=== PATIENT | female | born 1970 | race American Indian/Alaskan Native ===

== ENCOUNTER 2019-03-31 22:59 | Observation (INO) | payer OTHER ==
[2019-03-31] MEDS ORDERED: ASPIRIN PO ONE (23:46)
[2019-04-01 00:24] LABS: Basophils % (Auto) 0.3 % (0.0-1.8); Eosinophils # (Auto) 0.3 K/mm3 (0.0-0.4); Eosinophils % (Auto) 3.6 % (0.0-4.3); Hematocrit 39.6 % (30.3-42.9); Hemoglobin 13.9 gm/dl (10.1-14.3); Lymphocytes # (Auto) 1.8 K/mm3 (1.2-5.4); Lymphocytes % (Auto) 25.9 % (13.4-35.0); Mean Corpuscular HGB Conc 35 % (30-34); Mean Corpuscular Volume 87 fl (79-97); Monocytes # (Auto) 0.4 K/mm3 (0.0-0.8); Monocytes % (Auto) 5.9 % (0.0-7.3); Platelet Count 235 K/mm3 (140-440); Red Blood Count 4.56 M/mm3 (3.65-5.03); Red Cell Distribution Width 14.4 % (13.2-15.2)
--- NOTE | 2019-04-01 00:35 | XRay Report ---
PROCEDURE: XR CHEST 1V AP TECHNIQUE: Chest radiograph single view. HISTORY: Chest Pain COMPARISONS: None . FINDINGS: Heart: Normal. Mediastinum/Vessels: Normal. Lungs/Pleural space: Normal. Bony thorax: No acute osseous abnormality. Life support devices: None. IMPRESSION: No acute cardiopulmonary abnormality. This document is electronically signed by Jamar Muhammad MD., April 01 2019 12:33:52 AM ET
--- NOTE | 2019-04-01 01:20 | Emergency Department Report ---
ED Chest Pain HPI - General Chief Complaint: Chest Pain Stated Complaint: REYNAGA/L ANKLE PAIN/CP Time Seen by Provider: 04/01/19 01:20 Source: patient Mode of arrival: Ambulatory Limitations: No Limitations - History of Present Illness Initial Comments: Patient is a 48-year-old female that presents emergency room with complaints of chest pain. Patient states chest pain is nonradiating. Patient states chest pain is a 4 out of 10 and is in the left chest. Patient states chest pain started approximately 4 hours ago. Patient states the pain is better with rest and worse with exertion. Patient states she has been noncompliant with her blood pressure medication due to running out of her meds. Patient states any time she runs out of her medications her left ankle swells. Patient states her ankle pain is a 2 out of 10 and is a pressure and nonradiating. Patient states her headache is secondary to her blood pressure being high. Patient states she takes hydrochlorothiazide 12.5 mg. MD Complaint: chest pain -: Sudden Onset: during rest Pain Location: substernal, left chest Pain Radiation: none Severity: moderate Severity scale (0 -10): 4 Quality: heaviness, pressure Consistency: constant Improves With: rest Worsens With: exertion re: denies: nausea, vomting, diaphoresis, dyspnea, sense of impending doom Other Symptoms: leg swelling. denies: cough, fever, syncope, rash, acid taste in mouth, palpitations, burping Treatments Prior to Arrival: none Aspirin use within the Past 7 Days: (0) No - Related Data On Oral Contraceptives: No Allergies Allergy/AdvReac Type Severity Reaction Status Date / Time No Known Allergies Allergy Verified 04/01/19 01:48 Heart Score - HEART Score History: Slightly suspicious EKG: Normal Age: 45-65 Risk factors: No known risk factors Troponin: < normal limit HEART Score: 1 ED Review of Systems ROS: Stated complaint: REYNAGA/L ANKLE PAIN/CP Other details as noted in HPI Constitutional: denies: chills, fever Eyes: denies: eye pain, eye discharge, vision change ENT: denies: ear pain, throat pain Respiratory: denies: cough, shortness of breath, wheezing Cardiovascular: denies: chest pain, palpitations Endocrine: no symptoms reported Gastrointestinal: denies: abdominal pain, nausea, diarrhea Genitourinary: denies: urgency, dysuria, discharge Musculoskeletal: denies: back pain, joint swelling, arthralgia Skin: denies: rash, lesions Neurological: denies: headache, weakness, paresthesias Psychiatric: denies: anxiety, depression Hematological/Lymphatic: denies: easy bleeding, easy bruising ED Past Medical Hx - Past Medical History Previous Medical History?: Yes Hx Hypertension: Yes Additional medical history: Morbid Obesity, - Surgical History Past Surgical History?: Yes Additional Surgical History: Left Ankle Fusion, Hysterectomy - Family History Family history: no significant - Social History Smoking Status: Never Smoker Substance Use Type: None ED Physical Exam - General Limitations: No Limitations General appearance: alert, in no apparent distress - Head Head exam: Present: atraumatic, normocephalic - Eye Eye exam: Present: normal appearance, PERRL Pupils: Present: normal accommodation - ENT ENT exam: Present: mucous membranes moist - Neck Neck exam: Present: normal inspection - Respiratory Respiratory exam: Present: normal lung sounds bilaterally. Absent: respiratory distress, wheezes, rales, chest wall tenderness - Cardiovascular Cardiovascular Exam: Present: regular rate, normal rhythm. Absent: systolic murmur, diastolic murmur, rubs, gallop - GI/Abdominal GI/Abdominal exam: Present: soft, normal bowel sounds. Absent: distended, tenderness - Extremities Exam Extremities exam: Present: normal inspection, full ROM, normal capillary refill, pedal edema. Absent: tenderness, calf tenderness - Back Exam Back exam: Present: normal inspection - Neurological Exam Neurological exam: Present: alert, oriented X3 - Psychiatric Psychiatric exam: Present: normal affect, normal mood - Skin Skin exam: Present: warm, dry, intact, normal color. Absent: rash ED Course Vital Signs 03/31/19 03/31/19 04/01/19 23:20 23:38 01:24 Temperature 98.7 F 98.7 F Pulse Rate 79 79 70 Respiratory 18 20 18 Rate Blood Pressure 151/119 151/119 Blood Pressure 147/113 [Right] O2 Sat by Pulse 95 98 97 Oximetry - Reevaluation(s) Reevaluation #1: Discussed all results with patient. Patient will be admitted to the hospitalist service. Patient agrees to plan of care. 04/01/19 02:15 - Consultations Consultation #1: Hospitalist consulted for admission. Hospitalist to admit patient. Hospitalist to assume care patient. 04/01/19 02:29 GERMAN score - German Score Age > 65: (0) No Aspirin use within the Past 7 Days: (0) No 3 or more CAD Risk Factors: (0) No 2 or more Angina events in past 24 hrs: (0) No Known CAD with more than 50% Stenosis: (0) No Elevated Cardiac Markers: (0) No ST Deviation Greater than 0.5mm: (0) No GERMAN Score: 0 ED Medical Decision Making - Lab Data Result diagrams: 03/31/19 23:58 03/31/19 23:58 - EKG Data -: EKG Interpreted by Or EKG shows normal: sinus rhythm, axis, intervals, QRS complexes, ST-T waves Rate: normal - Radiology Data Radiology results: report reviewed, image reviewed PROCEDURE: XR CHEST 1V AP TECHNIQUE: Chest radiograph single view. HISTORY: Chest Pain COMPARISONS: None . FINDINGS: Heart: Normal. Mediastinum/Vessels: Normal. Lungs/Pleural space: Normal. Bony thorax: No acute osseous abnormality. Life support devices: None. IMPRESSION: No acute cardiopulmonary abnormality. - Medical Decision Making Patient is a 48-year-old female that presents emergency room for lower extremity edema and headache and chest pain. Patient is also noncompliant with her blood pressure medications. He has elevated blood pressure. Patient was admitted to the hospitalist service - Differential Diagnosis chest pain. ACS. Noncompliance. Elevated blood pressure. Critical Care Time: Yes Critical care attestation.: If time is entered above; I have spent that time in minutes in the direct care of this critically ill patient, excluding procedure time. Critical Care Time: 35 minutes ED Disposition Clinical Impression: Noncompliance Chest pain Qualifiers: Chest pain type: unspecified Qualified Code(s): R07.9 - Chest pain, unspecified Hypertension Qualifiers: Hypertension type: essential hypertension Qualified Code(s): I10 - Essential (primary) hypertension Disposition: OP ADMIT IP TO THIS HOSP Is pt being admited?: Yes Does the pt Need Aspirin: No Condition: Critical Referrals: DYLON AZAR MD [Primary Care Provider] - 3-5 Days Time of Disposition: 02:24
[2019-04-01 02:19] LABS: BUN/Creatinine Ratio 17; Blood Urea Nitrogen 10 mg/dL (7-17); Calcium 8.9 mg/dL (8.4-10.2); Hemolysis Index 21
[2019-04-01] MEDS ORDERED: MORPHINE IV PRN (03:21)
[2019-04-01] MEDS ORDERED: TYLENOL PO PRN (03:21)
[2019-04-01] MEDS ORDERED: SODIUM CHLORIDE FLUSH SYRINGE 10 ML IV PRN (03:21)
[2019-04-01] MEDS ORDERED: ZOFRAN IV PRN (03:21)
[2019-04-01] MEDS ORDERED: DILAUDID IV PRN (03:22)
[2019-04-01] MEDS ORDERED: K-DUR PO ONE ×2 (03:24→03:36)
[2019-04-01] MEDS ORDERED: APRESOLINE IV PRN (03:24)
[2019-04-01] MEDS ORDERED: NITROSTAT SL PRN (03:25)
[2019-04-01] MEDS ORDERED: NORVASC PO ONE (03:42)
[2019-04-01] MEDS ORDERED: LASIX IV ONE (03:42)
--- NOTE | 2019-04-01 03:56 | History and Physical Report ---
<MARKY HODGES - Last Filed: 04/01/19 03:48> History of Present Illness Date of examination: 04/01/19 Date of admission: 04/01/2019 Chief complaint: Chest pain History of present illness: 48-year-old female with history of hypertension presents to [facility] ED with complaints of left sided chest pain and mild headache. Patient states that she ran out of her blood pressure medicine approximately 2 days ago. Around 8 PM last night while she was sitting down watching TV she started experiencing left-sided chest pain. The pain is nonradiating and sharp. She rates her pain 4/10. She also complains of mild headache which she attributes to elevated blood pressure. Her headache is generalized and she rates her pain 2/10. Patient states that she knows her blood pressure is elevated because her left ankle is swollen and this only happens when her blood pressure is high. Denies nausea, vomiting, diarrhea, diaphoresis, hemoptysis, fever, chills, recent sick contact Past History Past Medical History: hypertension, other (morbid obesity) Past Surgical History: hysterectomy, Other ( Left Ankle Fusion) Social history: Lives alone Family history: no significant family history Medications and Allergies Allergies Allergy/AdvReac Type Severity Reaction Status Date / Time No Known Allergies Allergy Verified 04/01/19 01:48 Active Meds: Active Medications Acetaminophen (Tylenol) 650 mg PO Q4H PRN PRN Reason: Pain MILD(1-3)/Fever >100.5/REYNAGA Aspirin (Baby Aspirin) 81 mg PO QDAY [facility] Atorvastatin Calcium (Lipitor) 40 mg PO QHS [facility] Heparin Sodium (Porcine) (Heparin) 5,000 unit SUB-Q Q12HR [facility] Hydralazine HCl (Apresoline) 10 mg IV Q4HR PRN PRN Reason: Blood Pressure Hydromorphone HCl (Dilaudid) 0.5 mg IV Q3H PRN PRN Reason: Pain , Severe (7-10) Stop: 04/01/19 23:59 Sodium Chloride (Nacl 0.9% 1000 Ml) 1,000 mls @ 75 mls/hr IV DIRECT MARYCHUY Stop: 04/01/19 12:00 Morphine Sulfate (Morphine) 2 mg IV Q4H PRN PRN Reason: Pain, Moderate (4-6) Stop: 04/01/19 23:59 Nitroglycerin (Nitrostat) 0.4 mg SL Q5M PRN PRN Reason: Chest Pain Ondansetron HCl (Zofran) 4 mg IV Q8H PRN PRN Reason: Nausea And Vomiting Sodium Chloride (Sodium Chloride Flush Syringe 10 Ml) 10 ml IV BID [facility]ARYCHUY Sodium Chloride (Sodium Chloride Flush Syringe 10 Ml) 10 ml IV PRN PRN PRN Reason: LINE FLUSH Review of Systems All systems: negative (reviewed and no additional remarkable complaints except as noted above) Cardiovascular: chest pain Musculoskeletal: other (left ankle edema) Neurological: headaches (mild headache) Exam - Physical Exam Narrative exam: Physical exam General appearance: Present: No acute distress, alert and oriented 3, middle- aged adult female - EENT Eyes: Present: PERRL, EOM intact ENT: hearing intact, poor dentition - Neck Neck: Present: supple, normal ROM - Respiratory Respiratory effort: Non-labored Respiratory: bilateral: Clear throughout - Cardiovascular Heart rate: 70 (bpm) Rhythm: Sinus rhythm Heart Sounds: Present: S1 & S2. Absent: rub, click - Extremities Extremities: no ischemia, pulses intact, abnormal (bilateral lower extremity pitting edema L>R) - Peripheral Assessment Peripheral Pulses: within normal limits - Abdominal General gastrointestinal: soft, non-tender, normal bowel sounds - Integumentary Integumentary: Present: warm, dry - Musculoskeletal Musculoskeletal: Able to move all extremities - Neurological Neurological: CNII-XII intact - Psychiatric Psychiatric: Appropriate for situation, cooperative - Constitutional Vitals: Temp Pulse Resp BP Pulse Ox 98.7 F 68 18 132/94 97 03/31/19 23:38 04/01/19 03:28 04/01/19 03:28 04/01/19 03:28 04/01/19 03:28 Results - Labs CBC & Chem 7: 03/31/19 23:58 03/31/19 23:58 Labs: Laboratory Last Values WBC 7.1 K/mm3 (4.5-11.0) 03/31/19 23:58 RBC 4.56 M/mm3 (3.65-5.03) 03/31/19 23:58 Hgb 13.9 gm/dl (10.1-14.3) 03/31/19 23:58 Hct 39.6 % (30.3-42.9) 03/31/19 23:58 MCV 87 fl (79-97) 03/31/19 23:58 MCH 30 pg (28-32) 03/31/19 23:58 MCHC 35 % (30-34) H 03/31/19 23:58 RDW 14.4 % (13.2-15.2) 03/31/19 23:58 Plt Count 235 K/mm3 (140-440) 03/31/19 23:58 Lymph % (Auto) 25.9 % (13.4-35.0) 03/31/19 23:58 [place] % (Auto) 5.9 % (0.0-7.3) 03/31/19 23:58 Eos % (Auto) 3.6 % (0.0-4.3) 03/31/19 23:58 Baso % (Auto) 0.3 % (0.0-1.8) 03/31/19 23:58 Lymph # 1.8 K/mm3 (1.2-5.4) 03/31/19 23:58 [place] # 0.4 K/mm3 (0.0-0.8) 03/31/19 23:58 Eos # 0.3 K/mm3 (0.0-0.4) 03/31/19 23:58 Baso # 0.0 K/mm3 (0.0-0.1) 03/31/19 23:58 Seg Neutrophils % 64.3 % (40.0-70.0) 03/31/19 23:58 Seg Neutrophils # 4.5 K/mm3 (1.8-7.7) 03/31/19 23:58 Sodium 138 mmol/L (137-145) 03/31/19 23:58 Potassium 3.4 mmol/L (3.6-5.0) L 03/31/19 23:58 Chloride 102.4 mmol/L (98-107) 03/31/19 23:58 Carbon Dioxide 20 mmol/L (22-30) L 03/31/19 23:58 19 mmol/L 03/31/19 23:58 BUN 10 mg/dL (7-17) 03/31/19 23:58 0.6 mg/dL (0.7-1.2) L 03/31/19 23:58 Estimated GFR > 60 ml/min 06/06/19 23:58 17 % 03/31/19 23:58 Glucose 89 mg/dL (65-100) 03/31/19 23:58 Calcium 8.9 mg/dL (8.4-10.2) 03/31/19 23:58 < 0.010 ng/mL (0.00-0.029) 04/01/19 02:37 - Imaging and Cardiology EKG: image reviewed (sinus rhythm 70 bpm) Chest x-ray: report reviewed (no acute cardiopulmonary abnormalities), image reviewed Assessment and Plan Assessment and plan: 48-year-old female with history of hypertension noncompliant with antihypertensive medication who presented to [facility] ED with complaints of left sided nonradiating chest pain and mild headache. Troponin negative 2. EKG unavailable for acute ischemic abnormalities. She was profoundly hypotensive with blood pressure 151/119. Will admit as OBS to Telemetry unit for further evaluation. Acute chest pain R/O ACS HTN Hypokalemia Plan: Continue Supportive Care Continuous telemetry monitoring Pain management NPO Monitor BP Start Norvasc 5 mg daily IV Lasix 20mg x1 dose ASA 81mg, Lipitor 40mg daily Monitor BMP Monitor electrolytes and replete as needed IVF NS @100ml/hr Stress Test (treadmill) pending DVT PPX on Heparin and SCD's This patient was seen in conjunction with Dr. Castellanos. Advance Directives: No VTE prophylaxis?: Chemical Plan of care discussed with patient/family: Yes <MERE CASTELLANOS - Last Filed: 04/01/19 05:08> History of Present Illness Date of admission: 04/01/19 03:21 Medications and Allergies Active Meds: Active Medications Acetaminophen (Tylenol) 650 mg PO Q4H PRN PRN Reason: Pain MILD(1-3)/Fever >100.5/REYNAGA Aspirin (Baby Aspirin) 81 mg PO QDAY [facility] Atorvastatin Calcium (Lipitor) 40 mg PO QHS [facility] Heparin Sodium (Porcine) (Heparin) 5,000 unit SUB-Q Q12HR [facility] Hydralazine HCl (Apresoline) 10 mg IV Q4HR PRN PRN Reason: Blood Pressure Hydromorphone HCl (Dilaudid) 0.5 mg IV Q3H PRN PRN Reason: Pain , Severe (7-10) Stop: 04/01/19 23:59 Sodium Chloride (Nacl 0.9% 1000 Ml) 1,000 mls @ 75 mls/hr IV DIRECT MARYCHUY Stop: 04/01/19 12:00 Morphine Sulfate (Morphine) 2 mg IV Q4H PRN PRN Reason: Pain, Moderate (4-6) Stop: 04/01/19 23:59 Nitroglycerin (Nitrostat) 0.4 mg SL Q5M PRN PRN Reason: Chest Pain Ondansetron HCl (Zofran) 4 mg IV Q8H PRN PRN Reason: Nausea And Vomiting Sodium Chloride (Sodium Chloride Flush Syringe 10 Ml) 10 ml IV BID [facility] Sodium Chloride (Sodium Chloride Flush Syringe 10 Ml) 10 ml IV PRN PRN PRN Reason: LINE FLUSH Exam - Constitutional Vitals: Temp Pulse Resp BP Pulse Ox 98.7 F 68 18 132/94 97 03/31/19 23:38 04/01/19 03:28 04/01/19 03:28 04/01/19 03:28 04/01/19 03:28 Results - Labs CBC & Chem 7: 03/31/19 23:58 03/31/19 23:58 Labs: Laboratory Last Values WBC 7.1 K/mm3 (4.5-11.0) 03/31/19 23:58 RBC 4.56 M/mm3 (3.65-5.03) 03/31/19 23:58 Hgb 13.9 gm/dl (10.1-14.3) 03/31/19 23:58 Hct 39.6 % (30.3-42.9) 03/31/19 23:58 MCV 87 fl (79-97) 03/31/19 23:58 MCH 30 pg (28-32) 03/31/19 23:58 MCHC 35 % (30-34) H 03/31/19 23:58 RDW 14.4 % (13.2-15.2) 03/31/19 23:58 Plt Count 235 K/mm3 (140-440) 03/31/19 23:58 Lymph % (Auto) 25.9 % (13.4-35.0) 03/31/19 23:58 [place] % (Auto) 5.9 % (0.0-7.3) 03/31/19 23:58 Eos % (Auto) 3.6 % (0.0-4.3) 03/31/19 23:58 Baso % (Auto) 0.3 % (0.0-1.8) 03/31/19 23:58 Lymph # 1.8 K/mm3 (1.2-5.4) 03/31/19 23:58 [place] # 0.4 K/mm3 (0.0-0.8) 03/31/19 23:58 Eos # 0.3 K/mm3 (0.0-0.4) 03/31/19 23:58 Baso # 0.0 K/mm3 (0.0-0.1) 03/31/19 23:58 Seg Neutrophils % 64.3 % (40.0-70.0) 03/31/19 23:58 Seg Neutrophils # 4.5 K/mm3 (1.8-7.7) 03/31/19 23:58 Sodium 138 mmol/L (137-145) 03/31/19 23:58 Potassium 3.4 mmol/L (3.6-5.0) L 03/31/19 23:58 Chloride 102.4 mmol/L (98-107) 03/31/19 23:58 Carbon Dioxide 20 mmol/L (22-30) L 03/31/19 23:58 19 mmol/L 03/31/19 23:58 BUN 10 mg/dL (7-17) 03/31/19 23:58 0.6 mg/dL (0.7-1.2) L 03/31/19 23:58 Estimated GFR > 60 ml/min 03/31/19 23:58 17 % 03/31/19 23:58 Glucose 89 mg/dL (65-100) 03/31/19 23:58 4.8 % (4-6) 04/01/19 03:39 Calcium 8.9 mg/dL (8.4-10.2) 03/31/19 23:58 < 0.010 ng/mL (0.00-0.029) 04/01/19 02:37 Triglycerides 52 mg/dL (2-149) 04/01/19 03:39 Cholesterol 145 mg/dL (50-199) 04/01/19 03:39 79 mg/dL (50-130) 04/01/19 03:39 64 mg/dL (40-59) H 06/07/19 03:39 2.26 % 04/01/19 03:39 Assessment and Plan Assessment and plan: Patient seen and examined, discussed with PARAPROFESSIONAL AIDE. 48 year old history of hypertension comes emergency room for evaluation of chest pain in the left chest lasting for a few seconds. Symptoms are reflective of hypertensive ur gency/chest pain, agree with plan as stated above
[2019-04-01] MEDS ORDERED: NACL 0.9% 1000 ML 1,000 ML IV SCH (04:00)
[2019-04-01 04:48] LABS: Chol/HDL Ratio 2.26 %
[2019-04-01] MEDS ORDERED: LASIX ONE (05:08)
[2019-04-01] MEDS ORDERED: NORVASC ONE (05:08)
[2019-04-01] MEDS ORDERED: NACL 0.9% 1000 ML 1,000 ML ONE (08:14)
--- NOTE | 2019-04-01 09:01 | Event Note ---
Date: 04/01/19 I was called by [facility] that patient is unable to do Exercise stress test due to ankle swelling with discomfort. So, i changed to Lexiscan and if negative will discharge home.
--- NOTE | 2019-04-01 09:03 | Discharge Summary ---
Providers - Providers Date of Admission: 04/01/19 03:21 Date of discharge: 04/01/19 Attending physician: FILOMENA FLORES [facility] Condition: Stable Hospital course: Patient is a 48-year-old woman with history of Hypertension who presented to [facility] ED with Chest pains, ankle swelling. She ran out of bp medication couple days ago. Troponin negative 2. EKG unavailable for acute ischemic abnormalities. pCXR showed no acute findings. Will admit as OBS to Telemetry unit for further evaluation. Discharge Diagnoses: Chest pains, suspect Costochronditis Accelerated hypertension with urgency due to noncompliance: counseling done, she refuses to take Lisinopril, only wants hctz 12.5mg/d Morbid obesity, BMI 48 Hypokalemia Disposition: DC-01 TO HOME OR SELFCARE Time spent for discharge: 31 mintues Core Measure Documentation - Palliative Care Palliative Care/ Comfort Measures: Not Applicable - Core Measures Any of the following diagnoses?: none - VTE Discharge Requirements Deep Vein Thrombosis/Pulmonary Embolism Present on Admission: No Has pt received <5 days of overlap therapy or INR<2.0: No Anticoagulant overlap therapy prescribed at discharge: No Contraindication No Overlap Therapy order at DC: Not Indicated Exam - Physical Exam Narrative exam: Gen: WDWN, bmi 48.0, NAD, Awake, Alert, Orientated HEENT: NCAT, EOMI, PERRL, OP Clear Neck: supple, no adenopathy, no thyromegaly, no JVD CVS/Heart: RRR, normal S1S2, pulses present bilaterally Chest/Lungs: CTA B, Symmetrical chest expansion, good air entry bilaterally, reproducible cw tenderness GI/Abdomen: soft, NTND, good bowel sounds, no guarding or rebound /Bladder: no suprapubic tenderness, no CVA or paraspinal tenderness Extermity/Skin: no c/c/e, no obvious rash MSK: FROM x 4 Neuro: CN 2-12 grossly intact, no new focal deficits Psych: calm - Constitutional Vitals: Temp Pulse Resp BP Pulse Ox 98.9 F 70 17 164/110 100 04/01/19 07:30 04/01/19 08:47 04/01/19 08:47 04/01/19 08:47 04/01/19 08:47 Plan Activity: other (no strenous activity unless cleared by PCP) Diet: low salt Special Instructions: record daily weights Additional Instructions: call [facility] for PCP [phone] Follow up with: ALMA LIONMACCLESFIELD MD ALBINA [Primary Care Provider] - 3-5 Days Prescriptions: hydroCHLOROthiazide [HCTZ] 12.5 mg PO QDAY #30 capsule
[2019-04-01] MEDS ORDERED: HEPARIN SUB-Q SCH (10:00)
[2019-04-01] MEDS ORDERED: SODIUM CHLORIDE FLUSH SYRINGE 10 ML IV SCH (10:00)
[2019-04-01] MEDS ORDERED: HCTZ PO SCH ×2 (10:00→14:00)
[2019-04-01] MEDS ORDERED: ZESTRIL PO SCH ×2 (10:00)
[2019-04-01] MEDS ORDERED: LEXISCAN IV ONE ×2 (10:22)
[2019-04-01] MEDS ORDERED: DILAUDID ONE (12:14)
[2019-04-01 14:42] VITALS: BP 132/60
--- NOTE | 2019-04-02 01:11 | Treadmill Report ---
LEXISCAN STRESS TEST REPORT REASON FOR STUDY: Chest pain. STRESS TEST PROTOCOL: The patient received 0.4 mg of Lexiscan intravenously over 10 seconds. Technetium-99m tetrofosmin was subsequently injected. Baseline ECG, normal sinus rhythm. Lexiscan ECG, no diagnostic ischemic changes. No chest pain. No arrhythmias. IMPRESSION: Electrocardiographically negative stress test. Nuclear imaging report to follow. [facility]# [id number] AGO/NTS
--- NOTE | 2019-04-02 05:26 | Treadmill Report ---
THALLIUM REPORT REASON FOR STUDY: Chest pain. IMAGING PROTOCOL: The patient received 10 mCi of technetium-99m Tetrofosmin for rest imaging and 28 mCi of technetium-99m Tetrofosmin for stress imaging. Imaging for all procedures was completed 30-90 minutes following the initial injection of Technetium 99m Tetrofosmin. SPECT imaging in the 180 degree arc was performed in the right anterior oblique projection. Computerized reconstruction of the images was performed for analysis. NUCLEAR IMAGING RESULTS: Technically limited study due to soft tissue attenuation artifact. Normal left ventricular cavity size with no change from stress to rest. Distribution of radionuclide within the left ventricle revealed a small area of photo-induction involving the apex. The degree of photo-induction is mild to moderate. Rest imaging showed worsening of the defect, suggesting that it is probably artifactual. In addition, there is a small area of photo-induction involving the inferior wall. The degree of photo-induction is moderate. Rest imaging does not show any significant improvement in this defect. Gated SPECT imaging revealed normal global LV systolic function with no significant wall motion abnormalities. The calculated left ventricular ejection fraction is 65%. IMPRESSION: Technically limited study. Small fixed apical defect, probably artifactual. Small fixed inferior wall defect. Normal global left ventricular systolic function with no significant wall motion abnormalities. Ejection fraction 65%. These findings suggest a small area of prior infarction in the right coronary artery territory. However, the defect noted in this patient may also be artifactual. No evidence of significant stress-induced ischemia. [facility]# [id number] NASIR/TONJA
[2019-04-02] MEDS ORDERED: BABY ASPIRIN PO SCH (10:00)
== END 2019-04-01 14:45 | disposition home or self-care (01) ==
LOC: ED 22:59 → 4A 04-01 03:21
PROVIDERS: ADMIT Internal Medicine; ATTEND Internal Medicine
DX: R07.89 Other chest pain (principal); I16.0 Hypertensive urgency; I24.9 Acute ischemic heart disease, unspecified; E87.6 Hypokalemia; E66.01 Morbid (severe) obesity due to excess calories; Z68.42 Body mass index [BMI] 45.0-49.9, adult; Z90.710 Acquired absence of both cervix and uterus; Z79.82 Long term (current) use of aspirin; Z79.899 Other long term (current) drug therapy
CPT/HCPCS: 36415; 71045; 78452; 80048; 80061; 83036; 84484; 85025; 93005; 93010; 93017; 96374; 96375; 99291; A9502; G0378; J1170; J1940; J2785; J7030